=== PATIENT | female | born 1990 | race Caucasian/White ===

== ENCOUNTER 2024-05-02 21:18 | Emergency (ER) | payer SELFPAY ==
[~2024-05-02] VITALS: Ht 195.6 cm; Wt 120.0 kg
[2024-05-02 21:35] VITALS: TEMP 97.9; O2SAT 99
[2024-05-02] MEDS ORDERED: TETANUS, DIPHTHERIA, PERTUSSIS VAC/PF 0.5ML (>10YR OLD) IM ONE (21:45)
[2024-05-02] MEDS: SODIUM CHLORIDE 0.9% 1,000 ML IV ONE (23:15)
[2024-05-02 23:18] LABS: BASOPHILS % 0.2 % (0.0-2.0); EOSINOPHILS % 0.4 % (0.0-5.0); HEMOGLOBIN. 15.7 g/dL (12.0-16.0); LYMPHOCYTES % 12.3 % (20.0-50.0); MEAN CORPUSCULAR HEMOGLOBIN 30.4 pg (28.0-32.0); MEAN CORPUSCULAR VOLUME 89.3 fL (81.0-99.0); MEAN PLATELET VOLUME 7.9 fl (7.4-10.4); NEUTROPHILS % 79.1 % (40.0-76.0); PLATELET 309 x1000/uL (130-400); RED BLOOD CELL COUNT 5.16 mill/uL (4.2-5.4); RED CELL DISTRIBUTION WIDTH 14.2 % (11.6-14.6); WHITE BLOOD COUNT 12.6 x1000/uL (4.5-11.0)
[2024-05-02 23:23] LABS: CHLORIDE 108 mEq/L (98-107); POTASSIUM 3.7 mEq/L (3.5-5.1); SODIUM 139 mEq/L (136-145)
[2024-05-02 23:24] LABS: CALCIUM 9.5 mg/dL (8.7-10.4); CARBON DIOXIDE 26 mEq/L (21-32)
[2024-05-02 23:29] LABS: CREATININE 1.1 mg/dL (0.6-1.0); GLUCOSE 111 mg/dL (70-105); UREA NITROGEN BLOOD 15 mg/dL (9-23)
[2024-05-02 23:44] LABS: TROPONIN I HIGH SENSITIVITY < 4 ng/L (3.0-34)
[2024-05-03] MEDS ORDERED: LIDOCAINE HCL 1% 20ML VIAL INFIL NR (00:30)
[2024-05-03 02:32] VITALS: BP 148/85; PULSE 76; RESP 18; O2SAT 100
== END 2024-05-03 02:34 | disposition home or self-care (01) ==
LOC: ER 21:18
DX: S01.112A Laceration without foreign body of left eyelid and periocular area, initial encounter (principal); R55 Syncope and collapse; W18.39XA Other fall on same level, initial encounter; Y93.89 Activity, other specified; Y92.89 Other specified places as the place of occurrence of the external cause; Y99.8 Other external cause status
CPT/HCPCS: 80048; 85025; 84484; 36415; 71045; 70450; 93005; 12011; 96360; 99285; J7030; Z7610